=== PATIENT | female | born 1950 | race Caucasian/White ===

== ENCOUNTER 2024-06-01 23:31 | Inpatient (IN) | payer MEDICARE ==
[~2024-06-01] VITALS: Ht 157.5 cm; Wt 102.1 kg
[2024-06-02] VITALS (11 sets, daily range): BP systolic 96–147; BP diastolic 55–74
[2024-06-02] MEDS ORDERED: CITALOPRAM HBR20 M9 PO (02:20)
[2024-06-02] MEDS ORDERED: ALLO300 PO (02:21)
[2024-06-02] MEDS ORDERED: CARVEDILOL25 M9 PO (02:22)
[2024-06-02] MEDS ORDERED: Pravastatin Sod80 MG PO (02:23)
[2024-06-02] MEDS ORDERED: HYDRA25 PO (02:24)
[2024-06-02] MEDS ORDERED: DAPSONE PO (02:24)
[2024-06-02] MEDS ORDERED: ISODIN20 PO (02:25)
[2024-06-02] MEDS ORDERED: Prednisone10 MG PO (02:26)
[2024-06-02] MEDS ORDERED: PRED20 PO (02:26)
[2024-06-02] MEDS ORDERED: Ondansetron HCl 2 MG / ML 2ML Vial IV PRN (02:50)
[2024-06-02] MEDS ORDERED: NS 1,000 ML IV SCH (02:50)
[2024-06-02] MEDS ORDERED: Acetaminophen 325 MG TABLET PO PRN (02:50)
[2024-06-02] MEDS ORDERED: FLU VACC TS2024-25(6MOS UP)/PF 45 MCG/0.5 ML SYRINGE IM ONE (02:50)
[2024-06-02 03:26] LABS: BASOPHILS ABSOLUTE AUTO 0.03 K/mm3 (0.00-0.23); BASOPHILS PERCENT AUTO 0 % (0-2); EOSINOPHILS ABSOLUTE AUTO 0.23 K/mm3 (0.00-0.68); EOSINOPHILS PERCENT AUTO 2 % (0-6); Hematocrit 24.4 % (33.0-51.0); Hemoglobin 7.8 g/dL (11.5-16.0); IMMATURE GRAN ABSOLUTE AUTO 0.44 K/mm3 (0.00-0.10); IMMATURE GRAN PERCENT AUTO 4 % (0-1); LYMPHOCYTES ABSOLUTE AUTO 1.73 K/mm3 (0.84-5.20); LYMPHOCYTES PERCENT AUTO 15 % (21-46); MONOCYTES ABSOLUTE AUTO 0.93 K/mm3 (0.16-1.47); MONOCYTES PERCENT AUTO 8 % (4-13); Mean Corpuscular HGB 31.6 pg (26.0-34.0); Mean Corpuscular Volume 99 fL (80-100); Mean Platelet Volume 11.3 fL (9.1-12.4); NEUTROPHILS ABSOLUTE AUTO 8.07 K/mm3 (1.96-9.15); NEUTROPHILS PERCENT AUTO 71 % (41-73); NRBC ABSOLUTE 0.07 K/mm3 (0.00-0.02); NRBC Auto 0.6 /100 WBC (0.0-0.2); Platelet Count 152 K/mm3 (150-400); RDW Coefficient Variation 19.8 % (11.7-14.2); RDW Standard Deviation 69.6 fL (35.1-46.3); Red Blood Cell Count 2.47 M/mm3 (3.80-5.20); White Blood Cell Count 11.43 K/mm3 (4.00-11.30)
--- NOTE | 2024-06-02 03:39 | NUR ---
Nursing note: PT ARRIVED AT 0210 VIA MEDICAL TRANSPORT. WAS ABLE TO AMBULATE FROM GURNEY TO BED WITH MINIMAL ASSIST. PT AOX4 AND PLEASANT MOOD AND AFFECT. PT ORIENTED TO ROOM AND CALL LIGHT. PT RESTING IN BED, BED IN LOWEST POSITION, AND CALL LIGHT IN REACH. CONTINUING CARE.
[2024-06-02 03:46] LABS: Albumin/Globulin Ratio 1.2 (0.8-1.8); Bilirubin, Total 1.4 mg/dL (0.1-1.0); Bun/Creatinine Ratio 9.7 (12.0-20.0); Calcium, Blood 8.6 mg/dL (8.5-10.1); Creatinine, Blood 2.89 mg/dL (0.40-1.00); Globulin, Blood 2.6 g/dL (2.2-4.0); Potassium, Blood 3.5 mmol/L (3.5-5.5); Total Protein, Blood 5.6 g/dL (6.4-8.2)
--- NOTE | 2024-06-02 05:03 | NUR ---
SHIFT SUMMARY: PT AOX4 TRANSPORTED HERE FROM [place] DUE TO SUSPECTED INFECTION AND IN NEED OF DIALYSIS. ABLE TO TRANSFER WITH 1PA STAND PIVOT OR WALK SHORT DISTANCES. USES WALKER AT HOME. NEW PERMA CATH FOR DIALYSIS. NEPHROLOGY CONSULTED. DENIES PAIN, LUNGS CLEAR BILATERALLY, HEART SOUNDS REGULAR. PLEASANT MOOD AND AFFECT, CALLS APPROPRIATELY. CURRENTLY RESTING IN BED, BED IN LOWEST POSITION, AND CALL LIGHT IN REACH. CONTINUING CARE.
[2024-06-02] MEDS ORDERED: Carvedilol 25 MG Tab PO SCH (08:00)
[2024-06-02] MEDS ORDERED: Allopurinol 100 MG Tab PO SCH (09:00)
[2024-06-02] MEDS ORDERED: HydrALAZINE HCl 50 MG Tab PO SCH (09:00)
[2024-06-02] MEDS ORDERED: Citalopram Hydrobromide 20 MG Tab PO SCH (09:00)
[2024-06-02 10:05] LABS: Hematocrit 24.4 % (33.0-51.0); Hemoglobin 7.8 g/dL (11.5-16.0)
[2024-06-02 11:53] LABS: Source, Urine Clean Catch
[2024-06-02 11:58] LABS: Appearance, Urine Cloudy (Clear); Blood, Urine 1+ (Neg); Color, Urine Amber (P-Yellow); Glucose Qualitative, Urine Neg (Neg); Ketones, Urine 1+ (Neg); Leukocyte Esterase, Urine 3+ (Neg); Nitrite, Urine Pos (Neg); Protein, Urine 3+ (Neg); Specific Gravity, Urine 1.025 (1.003-1.022); Urobilinogen, Urine 1+ (Normal)
--- NOTE | 2024-06-02 11:58 | NUR ---
Spiritual Care Visit | Pt. Request Pt. is awake in bed and welcomed my visit. Pt. is pleasant but quickly felt comfortable sharing her fear of being on the wing with some of the "mental Pts". Sought to normalize the Pt. experience, and gave assuarance that there are safety measures in place. Pt. displayed evidence of understanding. Facilitated a lengthy life review and established rapport. Considered matters of jess and belief. Prayed for Pt. Pt. verbalized gratitude for the spiritual care visit.
[2024-06-02 12:06] LABS: Bilirubin, Urine 3+ (Neg); White Blood Cells, Urine 50-100 /hpf (0-5)
[2024-06-02 12:07] LABS: Bacteria Many /hpf; Squamous Epithelial Cells Few /hpf (Few); Transitional Epithelial Cells Few /hpf (0-Rare)
--- NOTE | 2024-06-02 13:19 | NUR ---
DR ISIDRO UPDATED ON [facility] BEING 3.14 STATED TO CALL DIALYSIS NURSE AND NOTIFY THEM THAT HE WOULD LIKE HER TO BE DIALYSISIED EITHER TODAY OR TOMORROW. PB IN DIALYSIS NOTIFED.
[2024-06-02] MEDS ORDERED: Anticoagulant Sod Citrate Soln 3 ML SYR INJ PRN (13:50)
[2024-06-02] MEDS ORDERED: CefTRIAXone Sodium 1,000 MG in NS 100 ML IV SCH (14:41)
[2024-06-02] MEDS ORDERED: Lactobacil 2-S.Thermo-Bifido 1 1 Cap PO SCH (15:00)
[2024-06-02 15:24] LABS: Hematocrit 27.4 % (33.0-51.0); Hemoglobin 8.6 g/dL (11.5-16.0)
[2024-06-02] MEDS ORDERED: Darbepoetin Alfa In Albumn Sol 40 MCG/0.4 ML SC SCH (16:00)
[2024-06-02] MEDS ORDERED: FUROSEMIDE40 MG PO (16:38)
[2024-06-02] MEDS ORDERED: AMLODIPINE BESY10 MG PO (16:38)
[2024-06-02] MEDS ORDERED: LOSARTAN POTAS100 M1 PO (16:39)
[2024-06-02] MEDS ORDERED: POTA8 PO (16:45)
--- NOTE | 2024-06-02 17:09 | NUR ---
SHIFT SUMMARY PT CONT LEVEL OF CARE. PT IS A&OX4 AND A STAND BY ASSIST WITH TRANSFERES. PT NOTED TO BE COOROPERATIVE WITH CARES AND ABLE TO MAKE NEEDS KNOWN. PT NOTED TO HAVE DIAYLSIS THIS SHIFT. PT NOTED TO BE TIRED AND RESTING AFTER TREATMENT WHICH PT STATED HIS NORMAL FOR HER AFTER RECIEVING A TX. PT SISTER CAME IN TO VISIT WITH PT THIS SHIFT AND IS PLANNING ON GETTING A HOTEL ROOM AND STAYING IN THE AREA. PT CONT TO UTILIZE 3L/NC.
[2024-06-02 21:39] LABS: Hematocrit 23.2 % (33.0-51.0); Hemoglobin 7.4 g/dL (11.5-16.0)
[2024-06-03] VITALS (10 sets, daily range): BP systolic 105–149; BP diastolic 49–75
--- NOTE | 2024-06-03 04:09 | NUR ---
SHIFT SUMMARY PT IS A/OX4. NO ACUTE CHANGES THROUGHOUT THIS SHIFT. PT SLEPT THROUGHOUT MOST IF THIS SHIFT. ON 3L NC IN ORDER TO MAINTAIN SATS >92%. TELE RUNNING NORMAL SINUS RYTHYM/SINUS ABIGAIL IN THE 50-60'S. PT TRANSFERING WITH SBA AND FWW.
[2024-06-03] MEDS ORDERED: Anticoagulant Sod Citrate Soln 3 ML SYR INJ PRN (07:10)
[2024-06-03 07:18] LABS: BASOPHILS ABSOLUTE AUTO 0.02 K/mm3 (0.00-0.23); BASOPHILS PERCENT AUTO 0 % (0-2); EOSINOPHILS ABSOLUTE AUTO 0.38 K/mm3 (0.00-0.68); EOSINOPHILS PERCENT AUTO 4 % (0-6); Hematocrit 23.8 % (33.0-51.0); Hemoglobin 7.4 g/dL (11.5-16.0); IMMATURE GRAN ABSOLUTE AUTO 0.39 K/mm3 (0.00-0.10); IMMATURE GRAN PERCENT AUTO 4 % (0-1); LYMPHOCYTES ABSOLUTE AUTO 1.32 K/mm3 (0.84-5.20); LYMPHOCYTES PERCENT AUTO 15 % (21-46); MONOCYTES ABSOLUTE AUTO 0.82 K/mm3 (0.16-1.47); MONOCYTES PERCENT AUTO 9 % (4-13); Mean Corpuscular HGB 31.4 pg (26.0-34.0); Mean Corpuscular HGB Conc 31.1 g/dL (31.5-36.5); Mean Corpuscular Volume 101 fL (80-100); Mean Platelet Volume 11.6 fL (9.1-12.4); NEUTROPHILS ABSOLUTE AUTO 6.15 K/mm3 (1.96-9.15); NEUTROPHILS PERCENT AUTO 68 % (41-73); NRBC ABSOLUTE 0.08 K/mm3 (0.00-0.02); NRBC Auto 0.9 /100 WBC (0.0-0.2); Platelet Count 135 K/mm3 (150-400); RDW Coefficient Variation 20.1 % (11.7-14.2); Red Blood Cell Count 2.36 M/mm3 (3.80-5.20); White Blood Cell Count 9.08 K/mm3 (4.00-11.30)
[2024-06-03 07:30] LABS: Albumin, Blood 2.7 g/dL (3.4-5.0); Anion Gap 8 mmol/L (3-11); Blood Urea Nitrogen 26 mg/dL (8-24); Bun/Creatinine Ratio 7.4 (12.0-20.0); CO2, Blood 35 mmol/L (21-32); Calcium, Blood 8.5 mg/dL (8.5-10.1); Chloride, Blood 100 mmol/L (98-108); Creatinine, Blood 3.49 mg/dL (0.40-1.00); Glomerular Filtration Rate 13 (60-); Glucose, Blood 103 mg/dL (70-99); Magnesium, Blood 1.9 mg/dL (1.6-2.4); Potassium, Blood 3.4 mmol/L (3.5-5.5); Sodium, Blood 140 mmol/L (136-145)
[2024-06-03] MEDS ORDERED: Potassium Chloride 10 Meq Tablet SA PO ONE (08:55)
[2024-06-03] MEDS ORDERED: CefTRIAXone Sodium 2,000 MG in NS 100 ML IV SCH (10:45)
[2024-06-03] MEDS ORDERED: NS 250 ML IV PRN (12:20)
[2024-06-03] MEDS ORDERED: Vancomycin HCL 2,000 MG in NS 500 ML IV SCH (13:00)
--- NOTE | 2024-06-03 17:06 | NUR ---
SHIFT SUMMARY PT CONT LEVEL OF CARE. PT IS A&OX4 AND SBA WITH TRANSFERS. PT RECEIVED DIAYLSIS TODAY. PT NOTED TO BE MORE TIRED AND OVERALL NOT FEELING GOOD COMPAIRED TO YESTERDAY. PT STARTED ON IV ABT THIS SHIFT.
--- NOTE | 2024-06-04 04:26 | NUR ---
SHIFT SUMMARY PT IS A/OX4. NO ACUTE CHANGED THROUGHOUT THIS SHIFT. PT SELPT MOST OF THIS SHIFT. PT REMAINS ON 3L NC, SATS MAINTAINING >95%. SBA WITH FWW. PT REPORTS INCREASED WEAKNESS AND FATIGUE FROM THE PREVIOUS NIGHT. FRIEND AT BEDSIDE THROUGHOUT THE NIGHT.
[2024-06-04 05:25] VITALS: BP 129/59
[2024-06-04 06:56] LABS: Albumin, Blood 2.5 g/dL (3.4-5.0); Anion Gap 14 mmol/L (3-11); Blood Urea Nitrogen 27 mg/dL (8-24); CO2, Blood 28 mmol/L (21-32); Calcium, Blood 8.1 mg/dL (8.5-10.1); Chloride, Blood 100 mmol/L (98-108); Creatinine, Blood 4.51 mg/dL (0.40-1.00); Glomerular Filtration Rate 10 (60-); Glucose, Blood 105 mg/dL (70-99); Magnesium, Blood 1.8 mg/dL (1.6-2.4); Phosphorus, Blood 3.2 mg/dL (2.5-4.9); Potassium, Blood 3.5 mmol/L (3.5-5.5); Sodium, Blood 138 mmol/L (136-145); Vancomycin, Random 32.5 ug/mL
[2024-06-04 06:56] LABS: Hematocrit 23.6 % (33.0-51.0); Hemoglobin 7.2 g/dL (11.5-16.0)
[2024-06-04 07:08] VITALS: BP 117/54
[2024-06-04] MEDS ORDERED: Sennosides 8.6 MG Tab PO PRN (09:45)
[2024-06-04] MEDS ORDERED: Polyethylene Glycol 3350 17 gm PO SCH (10:00)
[2024-06-04 10:54] LABS: Influenza A, PCR NEGATIVE (NEGATIVE); Influenza B, PCR NEGATIVE (NEGATIVE); Resp Syncytial Virus, PCR NEGATIVE (NEGATIVE); SARS-Cov-2 (COVID-19) PCR, MMC NEGATIVE (NEGATIVE)
[2024-06-04 16:34] VITALS: BP 114/55
--- NOTE | 2024-06-04 17:26 | NUR ---
PT CONT PLAN OF CARE WITH NO ACUTE CHANGES NOTED. PT PLAN IS TO HERE TILL AT LEAST THE 06/07 PT NEPOROLOGIST IS ON VACATION AND PT WILL NEED DIAYLISIS
[2024-06-04 20:26] VITALS: BP 110/59
[2024-06-05] VITALS (15 sets, daily range): BP systolic 90–139; BP diastolic 30–72
[2024-06-05 00:19] LABS: BASOPHILS ABSOLUTE AUTO 0.02 K/mm3 (0.00-0.23); BASOPHILS PERCENT AUTO 0 % (0-2); EOSINOPHILS ABSOLUTE AUTO 0.31 K/mm3 (0.00-0.68); EOSINOPHILS PERCENT AUTO 3 % (0-6); Hematocrit 22.3 % (33.0-51.0); Hemoglobin 7.1 g/dL (11.5-16.0); IMMATURE GRAN ABSOLUTE AUTO 0.12 K/mm3 (0.00-0.10); IMMATURE GRAN PERCENT AUTO 1 % (0-1); LYMPHOCYTES ABSOLUTE AUTO 1.49 K/mm3 (0.84-5.20); LYMPHOCYTES PERCENT AUTO 15 % (21-46); MONOCYTES ABSOLUTE AUTO 0.66 K/mm3 (0.16-1.47); MONOCYTES PERCENT AUTO 7 % (4-13); Mean Corpuscular HGB 32.1 pg (26.0-34.0); Mean Corpuscular HGB Conc 31.8 g/dL (31.5-36.5); Mean Corpuscular Volume 101 fL (80-100); Mean Platelet Volume 10.9 fL (9.1-12.4); NEUTROPHILS ABSOLUTE AUTO 7.07 K/mm3 (1.96-9.15); NEUTROPHILS PERCENT AUTO 73 % (41-73); Platelet Count 112 K/mm3 (150-400); RDW Coefficient Variation 18.8 % (11.7-14.2); RDW Standard Deviation 69.1 fL (35.1-46.3); Red Blood Cell Count 2.21 M/mm3 (3.80-5.20); White Blood Cell Count 9.67 K/mm3 (4.00-11.30)
[2024-06-05 00:37] LABS: Albumin, Blood 2.6 g/dL (3.4-5.0); Anion Gap 13 mmol/L (3-11); Blood Urea Nitrogen 40 mg/dL (8-24); CO2, Blood 29 mmol/L (21-32); Calcium, Blood 8.6 mg/dL (8.5-10.1); Chloride, Blood 99 mmol/L (98-108); Creatinine, Blood 6.65 mg/dL (0.40-1.00); Glomerular Filtration Rate 6 (60-); Glucose, Blood 124 mg/dL (70-99); Magnesium, Blood 1.9 mg/dL (1.6-2.4); Potassium, Blood 3.7 mmol/L (3.5-5.5); Sodium, Blood 137 mmol/L (136-145)
--- NOTE | 2024-06-05 04:49 | NUR ---
Pt here for AMS/encephalopathy. Pt is new to dialysis, and recieves her HD on normally, but her MD is out of town at this time and there is no way to schedule tx's for her until 06/07. Pt with constipation, tx with miralax. Pt has negative BC x3 days. H&H low at midnight 7.1/22.3. Remains on 3L of O2, this is baseline for her. tele is NSR in 70's. VS WNL.
[2024-06-05] MEDS ORDERED: Anticoagulant Sod Citrate Soln 3 ML SYR INJ PRN (07:10)
[2024-06-05 14:18] LABS: Hematocrit 22.6 % (33.0-51.0); Hemoglobin 7.1 g/dL (11.5-16.0)
--- NOTE | 2024-06-05 18:24 | NUR ---
PT CONT LEVEL OF CARE. PT RECEIVED DIAYLISIS THIS SHIFT. PT NOTED TO WORK WITH THERAY. PT CONT TO REMAIN WEAK BUT NOTED IMPROVEMENT FROM COUPLE DAYS AGO. PT CONT TO REMAIN CONSTIPATED. PHYSICIAN ORDER CT OF ABD THIS SHIFT THAT SHOWED CONSTIPATION.
[2024-06-06] VITALS (15 sets, daily range): BP systolic 112–143; BP diastolic 55–85
--- NOTE | 2024-06-06 05:39 | NUR ---
Pt slept on and off through night, up several times to attempt to deficate with no success. Pt may need a suppository or enema to help. VS WNL, Pt with clear L/S, remains on O2 3L. tele is NSR with BBB in 80's. was noticed to attempt to get OOB without assist, bed alarm in use. discharge still planned for 06/07. Friend at bedside last night.
[2024-06-06 06:18] LABS: Hematocrit 22.6 % (33.0-51.0)
[2024-06-06 06:24] LABS: Albumin, Blood 2.5 g/dL (3.4-5.0); Anion Gap 13 mmol/L (3-11); Blood Urea Nitrogen 33 mg/dL (8-24); Bun/Creatinine Ratio 5.3 (12.0-20.0); CO2, Blood 29 mmol/L (21-32); Calcium, Blood 8.6 mg/dL (8.5-10.1); Chloride, Blood 97 mmol/L (98-108); Creatinine, Blood 6.22 mg/dL (0.40-1.00); Glomerular Filtration Rate 7 (60-); Glucose, Blood 107 mg/dL (70-99); Phosphorus, Blood 2.9 mg/dL (2.5-4.9); Potassium, Blood 3.4 mmol/L (3.5-5.5); Sodium, Blood 136 mmol/L (136-145)
[2024-06-06] MEDS ORDERED: Potassium Chloride 10 Meq Tablet SA PO ONE (06:35)
[2024-06-06] MEDS ORDERED: Anticoagulant Sod Citrate Soln 3 ML SYR INJ PRN (09:00)
--- NOTE | 2024-06-06 09:45 | NUR ---
Pt. is awake and welcomes my visit. Pt. 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 Pt. verbalized an expectation that she would be discharged. Prayed with the Pt. Pt. verbalized gratitude for the spiritual care visit.
[2024-06-06] MEDS ORDERED: Lactulose 20 GM/30 ML UDC PO ONE (12:10)
[2024-06-06] MEDS ORDERED: SENN187 PO (14:25)
[2024-06-06] MEDS ORDERED: MIRALAX1714 PO (14:25)
[2024-06-06] MEDS ORDERED: Arginine/Glutamine/Calcium Hmb 1 Packet PO SCH (21:00)
== END 2024-06-06 14:57 | disposition home health service (06) | DRG 291 ==
LOC: MEDS 23:31
PROVIDERS: Family Medicine; Internal Medicine Nephrology; ADMIT Internal Medicine
PROC: 5A1D70Z Performance of Urinary Filtration, Intermittent, Less than 6 Hours Per Day (ICD-10-PCS; principal; 2024-06-06)
PROC: 30233N1 Transfusion of Nonautologous Red Blood Cells into Peripheral Vein, Percutaneous Approach (ICD-10-PCS; 2024-06-06)
DX: I13.2 Hypertensive heart and chronic kidney disease with heart failure and with stage 5 chronic kidney disease, or end stage renal disease (principal); N18.6 End stage renal disease; J96.11 Chronic respiratory failure with hypoxia; M10.9 Gout, unspecified; L89.151 Pressure ulcer of sacral region, stage 1; F41.9 Anxiety disorder, unspecified; M19.90 Unspecified osteoarthritis, unspecified site; D64.9 Anemia, unspecified; I42.9 Cardiomyopathy, unspecified; K21.9 Gastro-esophageal reflux disease without esophagitis; E86.0 Dehydration; E87.6 Hypokalemia; K59.00 Constipation, unspecified; H40.9 Unspecified glaucoma; G47.00 Insomnia, unspecified; Z98.890 Other specified postprocedural states; Z79.899 Other long term (current) drug therapy; E88.09 Other disorders of plasma-protein metabolism, not elsewhere classified; D63.1 Anemia in chronic kidney disease; I50.22 Chronic systolic (congestive) heart failure; Z88.2 Allergy status to sulfonamides; Z88.8 Allergy status to other drugs, medicaments and biological substances; Z99.2 Dependence on renal dialysis
CPT/HCPCS: 0241U; 36415; 71045; 74018; 80053; 80069; 80202; 81001; 82565; 82947; 83735; 83880; 85014; 85018; 85025; 86850; 86900; 86901; 86923; 87086; 96365; 96366; 96367; 96372; 96375; 96376; 97110; 97116; 97162; 97530; A9270; G0378; J0696; J0881; J2405; J3370; J7030; J7040; J7050; P9016